=== PATIENT | female | born 1985 | race Caucasian/White ===

== ENCOUNTER 2016-10-16 21:59 | Emergency (ER) | payer OTHER ==
[2016-10-16 21:59] VITALS: BP 128/103
== END 2016-10-16 23:52 | disposition left against medical advice (07) ==
LOC: ED 21:59
DX: Z53.21 Procedure and treatment not carried out due to patient leaving prior to being seen by health care provider (principal)

== ENCOUNTER 2018-07-08 22:56 | Emergency (ER) | payer SELFPAY ==
[~2018-07-08] VITALS: Ht 154.9 cm; Wt 72.6 kg
[2018-07-08 23:03] VITALS: BP 126/80; Ht 154.9 cm; Wt 72.6 kg
== END 2018-07-08 23:31 | disposition left against medical advice (07) ==
LOC: ED 22:56
DX: Z53.21 Procedure and treatment not carried out due to patient leaving prior to being seen by health care provider (principal)